=== PATIENT | male | born 1930 | race Caucasian/White ===

== ENCOUNTER 2018-03-20 09:50 | Emergency (ER) | payer MEDICARE, BC ==
[~2018-03-20 09:50] MED LIST: ASPI-630 PO; ATEN25TA PO; FLUT16SP2 NS
--- NOTE | 2018-03-20 10:09 | EKG ---
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
[2018-03-20 10:19] LABS: BASO # 0.1 x10^3/uL (0.0-0.2); BASO % 1 % (0-3); EOS % 0 % (0-3); HEMATOCRIT 36.6 % (39.0-53.0); HEMOGLOBIN 12.5 g/dL (13.0-17.5); LYMPH # 2.1 x10^3/uL (1.0-4.8); LYMPH % 20 % (24-48); MEAN CORPUSCULAR HEMOGLOBIN 32 pg (25-35); MEAN CORPUSCULAR HGB CONC 34 g/dL (31-37); MEAN CORPUSCULAR VOLUME 92 fL (79-100); MONO % 9 % (0-9); NEUT # 7.4 x10^3uL (1.8-7.7); NEUT % 70 % (31-73); PLATELET COUNT 175 x10^3/uL (140-400); RED BLOOD COUNT 3.97 x10^6/uL (4.30-5.70); RED CELL DISTRIBUTION WIDTH 13.3 % (11.5-14.5); WHITE BLOOD COUNT 10.6 x10^3/uL (4.0-11.0)
--- NOTE | 2018-03-20 10:26 | PHYS DOC ---
Past History Past Medical History: Cancer, Hypertension Past Surgical History: Other Smoking: Non-smoker Alcohol Use: None Drug Use: None Adult General Chief Complaint Chief Complaint: CHEST PAIN HPI HPI 87-year-old male presenting the emergency department today with epigastric abdominal pain and pain underneath the ribs with a radiates down to the umbilicus. It is mild to moderate nonradiating intermittent and without alleviating factors. It started approximately 12-24 hours ago. He has a history of partial colectomy, orchectomy and prostatectomy. He denies nausea or vomiting. Review of systems negative for fevers chills cough. He denies headache. All other review of systems is negative unless otherwise noted in history of present illness. ED course: 87-year-old male presenting the emergency department today with epigastric abdominal pain. On arrival the patient's blood pressure is elevated. EKGs obtained and reviewed by myself shows sinus rhythm with a regular rate. ST segments congruent. Not suggestive of ACS. Chest x-ray blood work and CT the abdomen pelvis ordered as well. CBC shows mild anemia. Chemistry panel, troponin and urinalysis are unremarkable. Chest x-ray shows no acute findings. CT the abdomen pelvis shows signs of acute cholecystitis with possible signs of choledocholithiasis. I spoke with Dr. Mcdowell our surgeon at [facility] along with Christa renae [facility] for Dr. Engel. Dr. golden accepts the patient for admission. The patient received IV antibiotics IV fluids and was kept nothing by mouth in the emergency department. Patient transferred by EMS. Patient was stable on transfer. Dr. golden is accepting doctor. Review of Systems Review of Systems SEE ABOVE. Allergies Allergies Allergies Coded Allergies Type Severity Reaction Last Updated Verified nitroglycerin Allergy Unknown 06/28/13 Yes Physical Exam Physical Exam Constitutional: Well developed, well nourished, no acute distress, non-toxic appearance. HENT: Normocephalic, atraumatic, bilateral external ears normal, oropharynx moist, no oral exudates, nose normal. [] Eyes: PERRLA, EOMI, conjunctiva normal, no discharge. [] Neck: Normal range of motion, no tenderness, supple, no stridor. [] Cardiovascular:Heart rate regular rhythm, no murmur Lungs & Thorax: Bilateral breath sounds clear to auscultation [] Abdomen: Soft nontender abdomen without rebound tenderness or guarding present. Negative McBurneys point. Positive Castellano sign. No ecchymosis present. non distended. no pulsatile masses. Skin: Warm, dry, no erythema, no rash. [] Back: No tenderness, no CVA tenderness. [] Extremities: No tenderness, no cyanosis, no clubbing, ROM intact, no edema. Neurologic: Alert and oriented X 3, normal motor function, normal sensory function, no focal deficits noted. [] Psychologic: Affect normal, judgement normal, mood normal. [] EKG EKG [] Radiology/Procedures Radiology/Procedures [] Course & Med Decision Making Course & Med Decision Making Pertinent Labs and Imaging studies reviewed. (See chart for details) [] Dragon Disclaimer Dragon Disclaimer This electronic medical record was generated, in whole or in part, using a voice recognition dictation system. Departure Departure: Impression: Primary Impression: Epigastric abdominal pain Additional Impressions: Choledocholithiasis Acute cholecystitis [facility] Condition: STABLE Referrals: EFREN SAUL MD (PCP) Critical Care Time Critical care time spent was 35 minutes exclusive of procedures. Time was spent evaluating the patient, ordering the administration of medications, reevaluating the patient, discussing with the admitting provider and documenting. Problem Qualifiers PAULA CARRILLO MD Mar 20, 2018 10:26
[2018-03-20] MEDS ORDERED: LABETALOL 100 MG/20 ML VIAL. IV ONE (10:30)
[2018-03-20] MEDS ORDERED: IOHEXOL 300 MG/ML 75 ML VIAL. IV ONE (10:30)
[2018-03-20 10:32] LABS: ALBUMIN 4.3 g/dL (3.4-5.0); CALCIUM 8.9 mg/dL (8.5-10.1); CREATININE 1.1 mg/dL (0.7-1.3); DIRECT BILIRUBIN 0.1 mg/dL (0.0-0.2); GFR 63.3; POTASSIUM 4.4 mmol/L (3.5-5.1); TOTAL BILIRUBIN 0.8 mg/dL (0.2-1.0); TOTAL PROTEIN 7.6 g/dL (6.4-8.2)
--- NOTE | 2018-03-20 10:37 | RAD ---
Chest radiograph 03/20/2018 9:56 AM INDICATION: Chest pain today COMPARISON: July 02, 2013 TECHNIQUE: Portable upright frontal view of the chest is provided. FINDINGS: The cardiomediastinal silhouette is within normal limits. There are no pleural effusions. There is no pulmonary vascular congestion. There is no pneumothorax. The lungs are clear. No significant osseous abnormality is identified. IMPRESSION: No acute cardiopulmonary process. Electronically signed by: Elizabeth Ochoa MD (03/20/2018 10:34 AM) [id number]
--- NOTE | 2018-03-20 11:04 | RAD ---
PQRS Compliance Statement: One or more of the following individualized dose reduction techniques were utilized for this examination: 1. Automated exposure control 2. Adjustment of the mA and/or kV according to patient size 3. Use of iterative reconstruction technique CT abdomen/pelvis with contrast 03/20/2018 10:16 AM INDICATION: Epigastric pain COMPARISON: CT abdomen/pelvis July 02, 2013 TECHNIQUE: Multiple axial CT images of the abdomen and pelvis were obtained after the intravenous administration of 75 mL Omnipaque 300. Coronal and sagittal reformats are provided. FINDINGS: Mild bronchial wall thickening may be seen with orchitis. Heart size is within normal limits. No suspicious hepatic lesion is identified. There is gallbladder wall thickening with pericholecystic fluid and mild intrahepatic and extra hepatic biliary ductal dilatation. Common bile duct measures up to 11 mm. A definite gallstone is not identified within the gallbladder or common bile duct. Spleen is normal in size. Adrenal glands are normal. Pancreas is normal in appearance. The abdominal aorta is normal in course and caliber. There are no pathologically enlarged lymph nodes in the abdomen and pelvis. There is no abdominal free fluid. There is no free intraperitoneal air. Advanced atherosclerotic calcifications of the abdominal aorta are present. The kidneys enhance symmetrically. There is no suspicious renal mass. There is no hydronephrosis. There are no suspected calculi within the kidneys, ureters or urinary bladder. Small and large bowel are normal in caliber. There is no evidence for bowel obstruction. There are no pericolonic inflammatory changes. A normal, nondilated appendix is visualized without adjacent inflammatory changes. Moderate diverticulosis is noted. Colonic anastomosis is identified in the region of the mid transverse colon. Prostate is surgically absent. Surgical clips are identified along the pelvic sidewall and within the deep pelvis. Urinary bladder is within normal limits given degree of distention. Osteopenia of the pelvis is noted. No suspicious osseous lesions are identified. IMPRESSION: 1. Findings are most suggestive of acute cholecystitis. Dilatation of the common bile duct and intrahepatic biliary tree may reflect choledocholithiasis. Further evaluation with MRCP is recommended. Common bile duct measures up to 11 mm. 2. Status post prostatectomy. No pathologically enlarged lymph nodes are identified in the abdomen or pelvis. 3. Mild bronchial wall thickening may reflect bronchitis. Electronically signed by: Elizabeth Ochoa MD (03/20/2018 11:00 AM) [facility]
[2018-03-20 11:27] LABS: BILIRUBIN,URINE NEG (NEG); CLARITY,URINE CLEAR; COLOR,URINE YELLOW; GLUCOSE,URINE NEG (NEG); NITRITE,URINE NEG (NEG); RBC,URINE RARE /HPF (0-2); UROBILINOGEN,URINE 0.2 mg/dL (0.2 mg/dL); WBC,URINE RARE /HPF (0-4)
[2018-03-20 11:28] LABS: BACTERIA,URINE 0 /HPF (0-FEW); HYALINE CASTS, URINE OCC /HPF; SQUAMOUS EPITHELIAL CELL,UR OCC /LPF
[2018-03-20] MEDS ORDERED: PIPERACILLIN/TAZOBACTAM 4.5 GM in IV NORMAL SALINE 50ML 50 ML IV ONE (11:30)
[2018-03-20] MEDS ORDERED: PIP/TAZO PER PHARMACY MC PRN (11:30)
[2018-03-20] MEDS ORDERED: IV NORMAL SALINE 50ML 50 ML ONE (12:06)
[2018-03-20] MEDS ORDERED: PIPERACILLIN/TAZOBACTAM 4.5 GM VIAL IV ONE (12:06)
[2018-03-20 12:24] VITALS: BP 168/81
== END 2018-03-20 12:50 | disposition short-term general hospital (02) ==
LOC: ER 09:50
DX: K80.10 Calculus of gallbladder with chronic cholecystitis without obstruction (principal); I10 Essential (primary) hypertension; Z88.8 Allergy status to other drugs, medicaments and biological substances
CPT/HCPCS: 36415; 71045; 74177; 80048; 80076; 81001; 83690; 84484; 85025; 93005; 96365; 96375; 99285; J2543; J3490; Q9967

== ENCOUNTER 2018-04-30 17:13 | Inpatient (IN) | payer MEDICARE, BC ==
[~2018-04-30] VITALS: Ht 180.3 cm; Wt 79.5 kg
[2018-04-30] MEDS ORDERED: IV DEXTROSE 5% 100 ML IV ONE (17:40)
[2018-04-30 17:45] LABS: BASO % 1 % (0-3); EOS % 1 % (0-3); HEMATOCRIT 34.4 % (39.0-53.0); HEMOGLOBIN 12.1 g/dL (13.0-17.5); LYMPH # 2.5 x10^3/uL (1.0-4.8); LYMPH % 45 % (24-48); MEAN CORPUSCULAR HEMOGLOBIN 32 pg (25-35); MEAN CORPUSCULAR HGB CONC 35 g/dL (31-37); MEAN CORPUSCULAR VOLUME 90 fL (79-100); MONO # 0.7 x10^3/uL (0.0-1.1); MONO % 13 % (0-9); NEUT # 2.2 x10^3uL (1.8-7.7); NEUT % 40 % (31-73); PLATELET COUNT 166 x10^3/uL (140-400); RED BLOOD COUNT 3.81 x10^6/uL (4.30-5.70); RED CELL DISTRIBUTION WIDTH 13.8 % (11.5-14.5); WHITE BLOOD COUNT 5.5 x10^3/uL (4.0-11.0)
--- NOTE | 2018-04-30 17:49 | PHYS DOC ---
Past History Past Medical History: Cancer, CHF, Diabetes, High Cholesterol, Hypertension Past Surgical History: Other Smoking: Non-smoker Alcohol Use: None Drug Use: None Adult General Chief Complaint Chief Complaint: fast heartbeat HPI HPI Patient is a 87-year-old male who presents with complaining of fast heartbeat. Patient states he had laparoscopic cholecystectomy last month and instructed to check his blood pressure and heart rate and today had heartbeat of 150s and blood pressure of 100 without chest pain, dizziness, shortness of breath, fever and chills. Patient did not have history of atrial fibrillation. Review of Systems Review of Systems Constitutional: Denies fever or chills [] Eyes: Denies change in visual acuity, redness, or eye pain [] HENT: Denies nasal congestion or sore throat [] Respiratory: Denies cough or shortness of breath [] Cardiovascular: No additional information not addressed in HPI [] GI: Denies abdominal pain, nausea, vomiting, bloody stools or diarrhea [] : Denies dysuria or hematuria [] Musculoskeletal: Denies back pain or joint pain [] Integument: Denies rash or skin lesions [] Neurologic: Denies headache, focal weakness or sensory changes [] Endocrine: Denies polyuria or polydipsia [] All other systems were reviewed and found to be within normal limits, except as documented in this note. Current Medications Current Medications Current Medications Medications (Trade) Dose Ordered Sig/[facility] Start Time Stop Time Status Last Admin Dose Admin Dextrose 100 ml @ As Directed STK-MED ONCE 04/30/18 17:40 04/30/18 17:41 DC Diltiazem HCl (Cardizem) 125 mg STK-MED ONCE 04/30/18 17:40 04/30/18 17:41 DC Diltiazem HCl 125 mg/Dextrose 125 ml @ 10 mls/hr 1X ONCE 04/30/18 18:00 05/01/18 06:29 Allergies Allergies Allergies Coded Allergies Type Severity Reaction Last Updated Verified nitroglycerin Allergy Unknown 06/28/13 Yes Uncoded Allergies Type Severity Reaction Last Updated Verified statins Adverse Reaction Unknown 03/20/18 Physical Exam Physical Exam Constitutional: Well developed, well nourished, no acute distress, non-toxic appearance. [] HENT: Normocephalic, atraumatic, oropharynx moist, no oral exudates, nose normal. [] Eyes: PERRLA, EOMI, conjunctiva normal, no discharge. [] Neck: Normal range of motion, no tenderness, supple, no stridor. [] Cardiovascular: Irregularly irregular rhythm with tachycardia, no murmur [] Lungs & Thorax: Bilateral breath sounds clear to auscultation [] Abdomen: Bowel sounds normal, soft, no tenderness, no masses, no pulsatile masses. [] Skin: Warm, dry, no erythema, no rash. [] Back: No tenderness, no CVA tenderness. [] Extremities: No tenderness, no cyanosis, no clubbing, ROM intact, no edema. [] Neurologic: Alert and oriented X 3, normal motor function, normal sensory function, no focal deficits noted. [] Psychologic: Affect normal, judgement normal, mood normal. [] Current Patient Data Vital Signs Vital Signs Date Time Temp Pulse Resp B/P (MAP) Pulse Ox O2 Delivery O2 Flow Rate FiO2 04/30/18 17:33 160 107/39 EKG EKG EKG interpreted by me. EKG at 1723 showed atrial flutter patient with RVR at rate of 167, poor R-wave progress in anteroseptal leads, no acute ST and T-wave elevation. Radiology/Procedures Radiology/Procedures [] Course & Med Decision Making Course & Med Decision Making Pertinent Labs and Imaging studies reviewed. (See chart for details) Evolution of patient in ER showed 87-year-old male patient presented to ER with history of patient with RVR without chest pain. Patient treated with Cardizem bolus and then and heart rate dropped to 100s. Dr. Mclaughlin accepted admission at 1745. Dragon Disclaimer Dragon Disclaimer This electronic medical record was generated, in whole or in part, using a voice recognition dictation system. Departure Departure: Impression: Primary Impression: Atrial fibrillation with RVR Additional Impression: Renal insufficiency Disposition: ADMITTED INPATIENT (admitted at 1746) Admitting Physician: Lupe Mclaughlin (accepted admission at 1745) Condition: GUARDED Referrals: EFREN SAUL MD (PCP) Problem Qualifiers JERO PARSONS MD Apr 30, 2018 17:49
[2018-04-30] MEDS ORDERED: dilTIAZem 25 MG/5 ML VIAL IVP ONE (18:00)
[2018-04-30] MEDS ORDERED: dilTIAZem VIAL 125 MG in IV DEXTROSE 5% 100 ML IV ONE (18:00)
[2018-04-30 18:02] LABS: ALBUMIN 3.9 g/dL (3.4-5.0); ALBUMIN/GLOBULIN RATIO 1.2 (1.0-1.7); CALCIUM 8.5 mg/dL (8.5-10.1); CREATININE 1.4 mg/dL (0.7-1.3); GFR 47.9; MAGNESIUM 1.8 mg/dL (1.8-2.4); TOTAL BILIRUBIN 0.6 mg/dL (0.2-1.0); TOTAL PROTEIN 7.1 g/dL (6.4-8.2)
--- NOTE | 2018-04-30 18:28 | RAD ---
AP portable chest 04/30/2018. Reason for exam: Tachycardia and dizziness. Comparison is made with a study of 03/20/2018. The left lateral costophrenic angle remains indistinct. No new infiltrate or effusion is seen. Heart size and pulmonary vascularity appear normal. IMPRESSION: No acute findings. Electronically signed by: Raghav Lemos Jr., MD (04/30/2018 6:25 PM) [facility]
[2018-04-30 19:45] VITALS: BP 146/83
--- NOTE | 2018-04-30 20:46 | EKG ---
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
[2018-04-30 22:00] VITALS: BP 115/68
[2018-04-30 23:00] VITALS: BP 111/65
[2018-05-01] VITALS (20 sets, daily range): BP systolic 107–172; BP diastolic 45–77
[2018-05-01] MEDS ORDERED: METO25TA4 PO (06:26)
[2018-05-01] MEDS ORDERED: ASPI-630 PO (06:26)
--- NOTE | 2018-05-01 07:19 | EKG ---
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
--- NOTE | 2018-05-01 14:56 | PDOC1 ---
History and Physical Date of Admission: Date of Admission: 04/30/2018 Chief Complaint: Chief Complain: Fast heart rate, fatigue Source: Source: Caregiver, Chart review, Patient HPI: HPI: Patient is an 87-year-old male who presented to the [place] [facility] with elevated heart rate and fatigue. He is seen in ICU bed 2 with spouse at bedside who contributes to the history, he is very hard of hearing. Spouse reports that he underwent a laproscopic cholecystectomy March 21 at [facility] (Dr Jeong) after which he had an episode of atrial fibrillation resolved with cardizem. Discharged at the time on metoprolol and ASA he experienced symptomatic bradycardia (HR in 40's with fatigue) his PCP Dr Jones cut metoprolol to 12.5mg daily advising at least daily blood pressure checks. He reportedly did well with the lowered metoprolol and home VS reportedly normal until he complained again of fatigue on Tuesday prompting him to check his BP. Home pressure reportedly normal but HR 150's and after calling his doctor came to [facility]. He denies related CP, dyspnea, fluid retention. In the ED EKG confirmed atrial fibrillation with RVR rate 160's which normalized quickly with cardizem bolus and subsequent drip. D-dimer was 0.73 in the context of recent surgery, BUN 25, Cr 1.4 otherwise labs unremarkable. Earlier today rate declined to 40's and drip was d/c. Cardiology consultation pending at the time I saw him. Past Medical History: Cardiovascular: AFIB (paroxysmal), CHF, HTN, hyperipidemia Heme/Onc: Cancer (prostate (s/p prostatectomy), colon (s/p resection)) Musculoskeletal: Osteoarthritis Endocrine: Diabetes (diet controlled) Past Surgical History: PSH: cataracts, prostatectomy, colon resection, laparoscopic cholecystectomy Social History: Smoke: Quit (25 years ago) Alcohol: rare Drugs: None Allergies: Allergies: Coded Allergies: Updqwna-Hux-Cmv Reductase Inhibitor (Verified Allergy, Intermediate, 05/01) nitroglycerin (Verified Allergy, Intermediate, 05/01/18) Current Medications: Current Medications: Current Medications Medications (Trade) Dose Ordered Sig/Samara Start Time Stop Time Status Last Admin Dose Admin Dextrose 100 ml @ As Directed STK-MED ONCE 04/30/18 17:40 04/30/18 17:41 DC Diltiazem HCl (Cardizem) 125 mg STK-MED ONCE 05/01/18 04:11 05/01/18 04:12 DC 05/01/18 04:20 125 MG Diltiazem HCl 125 mg/Dextrose 125 ml @ 10 mls/hr 1X ONCE 04/30/18 18:00 05/01/18 06:29 DC 04/30/18 17:44 10 MLS/HR ROS: ROS: Constitutional: No fever or chills, +fatigue Eyes: No eye pain or blurred vision Skin: No rash or itching Cardiovascular: No chest pain, syncope, palpitations, dyspnea on exertion, or edema, see HPI Respiratory: No cough or difficulty breathing Gastrointestinal: No nausea, vomiting, or abdominal pain Neurologic: No headaches or focal neurologic deficits Endocrine: No heat or cold intolerance Genitourinary: No incontinence or hematuria Musculoskeletal: No joint pain or swelling Lymphatics: No enlarged lymph nodes Psychiatric: No anxiety or depression PE: PE: Gen.: Alert, pleasant, no apparent distress, very [place] HEENT: Normocephalic atraumatic, no scleral icterus, oral mucosa pink and moist Neck: Supple, no lymphadenopathy, nontender Cardiovascular: Normal S1 and S2 no murmurs Pulmonary: Lungs are clear bilaterally with good air movement no respiratory distress Abdomen: Soft nontender non-distended, bowel sounds present no masses Extremities: No clubbing, cyanosis or edema Neuro: Alert and oriented 3, cranial nerves II through XII grossly intact, no lateralizing neuro deficits Skin: Warm, dry Vitals: Vitals: Vital Signs Date Time Temp Pulse Resp B/P (MAP) Pulse Ox O2 Delivery O2 Flow Rate FiO2 05/01/18 14:00 49 22 149/63 (91) Room Air 05/01/18 12:00 96 05/01/18 11:00 98.1 Labs: Labs: Laboratory Tests Test 04/30/18 17:29 04/30/18 20:55 04/30/18 23:59 White Blood Count 5.5 x10^3/uL (4.0-11.0) Red Blood Count 3.81 x10^6/uL (4.30-5.70) Hemoglobin 12.1 g/dL (13.0-17.5) Hematocrit 34.4 % (39.0-53.0) Mean Corpuscular Volume 90 fL (79-100) Mean Corpuscular Hemoglobin 32 pg (25-35) Mean Corpuscular Hemoglobin Concent 35 g/dL (31-37) Red Cell Distribution Width 13.8 % (11.5-14.5) Platelet Count 166 x10^3/uL (140-400) Neutrophils (%) (Auto) 40 % (31-73) Lymphocytes (%) (Auto) 45 % (24-48) Monocytes (%) (Auto) 13 % (0-9) Eosinophils (%) (Auto) 1 % (0-3) Basophils (%) (Auto) 1 % (0-3) Neutrophils # (Auto) 2.2 x10^3uL (1.8-7.7) Lymphocytes # (Auto) 2.5 x10^3/uL (1.0-4.8) Monocytes # (Auto) 0.7 x10^3/uL (0.0-1.1) Eosinophils # (Auto) 0.0 x10^3/uL (0.0-0.7) Basophils # (Auto) 0.0 x10^3/uL (0.0-0.2) Prothrombin Time 9.8 SEC (9.4-11.4) Prothromb Time International Ratio 1.0 (0.9-1.1) D-Dimer (Coleen) 0.73 mg/L (0.00-0.50) Sodium Level 138 mmol/L (136-145) Potassium Level 4.0 mmol/L (3.5-5.1) Chloride Level 103 mmol/L (98-107) Carbon Dioxide Level 24 mmol/L (21-32) Anion Gap 11 (6-14) Blood Urea Nitrogen 25 mg/dL (8-26) Creatinine 1.4 mg/dL (0.7-1.3) Estimated GFR (Cockcroft-Gault) 47.9 BUN/Creatinine Ratio 18 (6-20) Glucose Level 187 mg/dL (70-99) Calcium Level 8.5 mg/dL (8.5-10.1) Magnesium Level 1.8 mg/dL (1.8-2.4) Total Bilirubin 0.6 mg/dL (0.2-1.0) Aspartate Amino Transf (AST/SGOT) 26 U/L (15-37) Alanine Aminotransferase (ALT/SGPT) 26 U/L (16-63) Alkaline Phosphatase 96 U/L (46-116) Creatine Kinase 96 U/L (39-308) Troponin I Quantitative < 0.017 ng/mL (0-0.055) < 0.017 ng/mL (0-0.055) 0.017 ng/mL (0-0.055) JK-Hvo-Q-Type Natriuretic Peptide 354 pg/mL (0-449) Total Protein 7.1 g/dL (6.4-8.2) Albumin 3.9 g/dL (3.4-5.0) Albumin/Globulin Ratio 1.2 (1.0-1.7) VTE Prophylaxis: VTE Prophylaxis Devices: No VTE Pharmacological Prophylaxi: Yes (eliquis anticoagulation per cardio) Assessment/Plan: A/P: Paroxysmal Atrial Fibrillation with RVR HTN Diet controlled DM2 Hyperlipidemia Cardizem induced bradycardia Continue telemetry monitoring. Flecainide/eliquis per cardio. Check TSH Anticipate d/c home tomorrow JASIEL FIGUEROA DO May 01, 2018 14:56
--- NOTE | 2018-05-01 16:52 | PDOC2 ---
CONSULT Date of Admission DATE: 04/30/18 TIME: 17:50 Reason for Consult: atrial fibrillation with RVR Problem List Problems Medical Problems: (1) Atrial fibrillation with RVR Status: Acute (2) Renal insufficiency Status: Acute History of Present Illness Mr Moy is an 87-year-old male who presented with complaints of fast heartbeat. He does not feel the fast beats. He was found to be in atrial fibrillation with rapid ventricular response. He underwent a laproscopic cholecystectomy in Mar and during that admission he had an episode of atrial fibrillation resolved with 30 min of cardizem as well. That episode occured in the setting of low potassium, leukocytosis and low TSH. Yesterday he was started on IV cardizem in the ED and converted to sinus rhythm early this am. Cardizem was stopped due to sinus bradycardia. He reports that his PCP changed his metoprolol after the March admission due to bradycardia as well. He was apparently instructed to monitor his blood pressure and heart rate at home after his surgery and yesterday noted the elevated heart rate without associated symptoms of chest pain, dizziness, shortness of breath. He denies any congestive complaints, fever or chills. He was placed on aspirin alone after the episode in March due to the brief nature of the event. Past Medical History Echo 03/22/18 The left ventricular systolic function is normal. The ejection fraction is estimated at 65%. There is normal LV segmental wall motion. Transmitral Doppler flow pattern is Grade I-abnormal relaxation pattern.e. Doppler and Color Flow revealed mild tricuspid regurgitation. There is no evidence of significant pericardial effusion. Cardiovascular: HTN, Hyperlipidemia, paroxysmal atrial fibrillation Pulmonary: No pertinent hx CENTRAL NERVOUS SYSTEM: Other (none) GI: Other (colon cancer with resection ) Heme/Onc: No pertinent hx Hepatobiliary: No pertinent hx Psych: No pertinent hx Musculoskeletal: Osteoarthritis Rheumatologic: No pertinent hx Infectious disease: No pertinent hx ENT: No pertinent hx Renal/: No pertinent hx, Prostate Ca. (with previous prostatectomy) Endocrine: Diabetes (diet controlled) Past Surgical History Cataract Removal (bilateral ), cholecystectomy Family History Cancer Social History Smoke: Quit (25 years ago) ALCOHOL: rare Drugs: None Lives: with Family Current Medications Current Medications Diltiazem HCl (Cardizem) 20 mg 1X ONCE IVP Last administered on 04/30/18at 17: 33; Start 04/30/18 at 18:00; Stop 04/30/18 at 18:01; Status DC Diltiazem HCl 125 mg/Dextrose 125 ml @ 10 mls/hr 1X ONCE IV Last administered on 04/30/18at 17:44; Start 04/30/18 at 18:00; Stop 05/01/18 at 06 :29; Status DC Dextrose 100 ml @ As Directed STK-MED ONCE IV ; Start 04/30/18 at 17:40; Stop 04/30/18 at 17:41; Status DC Diltiazem HCl (Cardizem) 125 mg STK-MED ONCE IV ; Start 04/30/18 at 17:40; Stop 04/30/18 at 17:41; Status DC Diltiazem HCl (Cardizem) 125 mg STK-MED ONCE IV Last administered on at 04:20; Start 05/01/18 at 04:11; Stop 05/01/18 at 04:12; Status DC Active Scripts Active Reported Metoprolol Tartrate 25 Mg Tablet 0.5 Tab PO BID Aspirin 81 Mg Tab.chew 81 Mg PO DAILY Flonase (Fluticasone Propionate) 16 Gm [place].susp 16 Gm NS Allergies: Coded Allergies: Ylhbdpw-Fwz-Evu Reductase Inhibitor (Verified Allergy, Intermediate, 05/01) nitroglycerin (Verified Allergy, Intermediate, 05/01/18) Review of System as per HPI General: Alert, Oriented X3, Cooperative, No acute distress HEENT: Atraumatic, EOMI, Mucous membr. moist/pink, Other (hard of hearing) Lungs: Clear to auscultation Heart: Normal S1, Normal S2, Other (no gallops, clicks or rubs) Abdomen: Normal bowel sounds, Soft, No tenderness Extremities: No cyanosis, Normal pulses Neuro: Normal speech Psych/Mental Status: Mental status NL, Mood NL VITALS Vital Signs Date Time Temp Pulse Resp B/P (MAP) Pulse Ox O2 Delivery O2 Flow Rate FiO2 05/01/18 16:02 98.0 48 22 141/62 (88) Room Air 05/01/18 15:00 95 Labs Laboratory Tests Test 04/30/18 17:29 04/30/18 20:55 04/30/18 23:59 White Blood Count 5.5 x10^3/uL (4.0-11.0) Red Blood Count 3.81 x10^6/uL (4.30-5.70) Hemoglobin 12.1 g/dL (13.0-17.5) Hematocrit 34.4 % (39.0-53.0) Mean Corpuscular Volume 90 fL (79-100) Mean Corpuscular Hemoglobin 32 pg (25-35) Mean Corpuscular Hemoglobin Concent 35 g/dL (31-37) Red Cell Distribution Width 13.8 % (11.5-14.5) Platelet Count 166 x10^3/uL (140-400) Neutrophils (%) (Auto) 40 % (31-73) Lymphocytes (%) (Auto) 45 % (24-48) Monocytes (%) (Auto) 13 % (0-9) Eosinophils (%) (Auto) 1 % (0-3) Basophils (%) (Auto) 1 % (0-3) Neutrophils # (Auto) 2.2 x10^3uL (1.8-7.7) Lymphocytes # (Auto) 2.5 x10^3/uL (1.0-4.8) Monocytes # (Auto) 0.7 x10^3/uL (0.0-1.1) Eosinophils # (Auto) 0.0 x10^3/uL (0.0-0.7) Basophils # (Auto) 0.0 x10^3/uL (0.0-0.2) Prothrombin Time 9.8 SEC (9.4-11.4) Prothromb Time International Ratio 1.0 (0.9-1.1) D-Dimer (Coleen) 0.73 mg/L (0.00-0.50) Sodium Level 138 mmol/L (136-145) Potassium Level 4.0 mmol/L (3.5-5.1) Chloride Level 103 mmol/L (98-107) Carbon Dioxide Level 24 mmol/L (21-32) Anion Gap 11 (6-14) Blood Urea Nitrogen 25 mg/dL (8-26) Creatinine 1.4 mg/dL (0.7-1.3) Estimated GFR (Cockcroft-Gault) 47.9 BUN/Creatinine Ratio 18 (6-20) Glucose Level 187 mg/dL (70-99) Calcium Level 8.5 mg/dL (8.5-10.1) Magnesium Level 1.8 mg/dL (1.8-2.4) Total Bilirubin 0.6 mg/dL (0.2-1.0) Aspartate Amino Transf (AST/SGOT) 26 U/L (15-37) Alanine Aminotransferase (ALT/SGPT) 26 U/L (16-63) Alkaline Phosphatase 96 U/L (46-116) Creatine Kinase 96 U/L (39-308) Troponin I Quantitative < 0.017 ng/mL (0-0.055) < 0.017 ng/mL (0-0.055) 0.017 ng/mL (0-0.055) VC-Cuv-F-Type Natriuretic Peptide 354 pg/mL (0-449) Total Protein 7.1 g/dL (6.4-8.2) Albumin 3.9 g/dL (3.4-5.0) Albumin/Globulin Ratio 1.2 (1.0-1.7) Assessment/Plan 1. atrial fib with RVR, recurrent, resolved with cardizem IV drip for short period. Currently sinus bradycardia. [id number] = 4, 5.1% annual risk of stroke. Will start low dose flecainide. Resume metoprolol but at reduced dose of 12.5 XL daily in the am. Eliquis for stroke prevention and outpatient MCT for 30 days. 2. HTN - diet controlled 3. HLD - statin intolerant due to myalgias 4. fatigue - he reported fatigue with metoprolol 25 bid, this was not significantly improved with decrease to 12.5 BID. Will limit to 12.5 daily long acting and monitor response. suspect some tachy jacques. outpatient monitoring to further evaluate. JAMSHID JEROME [employer] MEMBER May 01, 2018 16:52
[2018-05-01] MEDS: FLECAINIDE 50 MG TABLET. PO SCH ×2 (20:49→21:44)
[2018-05-01] MEDS: APIXABAN 5 MG TABLET. PO SCH (20:52)
[2018-05-02 05:00] VITALS: BP 139/72
[2018-05-02] MEDS: FLECAINIDE 50 MG TABLET. PO SCH (07:59)
[2018-05-02] MEDS: APIXABAN 5 MG TABLET. PO SCH (08:00)
[2018-05-02] MEDS ORDERED: METOPROLOL SUCC 24HR ER 25 MG TAB.ER.24H. PO SCH (09:00)
--- NOTE | 2018-05-02 09:23 | PDOC ---
PROGRESS NOTES Diagnosis Problem Problems Medical Problems: (1) Atrial fibrillation with RVR Status: Acute (2) Renal insufficiency Status: Acute Assessment Problems Medical Problems: (1) Atrial fibrillation with RVR Status: Acute (2) Renal insufficiency Status: Acute 1. paroxysmal atrial fibrillation with RVR - remains sinus rhythm. Sinus jacques yesterday suggestive of tachy-jacques. Rate currently 70s. Continue metoprolol, flecainide and Eliquis for stroke prophylaxis. outpatient MCT for burden, to be applied in LV office tomorrow at 1pm. EKG today sinus bradycardia with PACs QTC 368. Tele sinus bradycardia with frequent PACs and short salvos of PAT. FU office on May [address] Varela per patient request as this is his 's physician as well. 2. hypertension - mildly elevated yesterday evening. started metoprolol. continue to monitor. consider ACEI if remains elevated. 3. HLD - statin intolerant. check lipids, consider PCSK9 inhibitor if indicated. Subjective no chest pain, dyspnea or lightheadedness. wants to go home. Objective Vital Signs Date Time Temp Pulse Resp B/P (MAP) Pulse Ox O2 Delivery O2 Flow Rate FiO2 05/02/18 08:00 100 05/02/18 08:00 Room Air 05/02/18 05:00 98.3 20 139/72 (94) 95 Intake and Output 05/02/18 07:00 Intake Total 850 ml Output Total 750 ml Balance 100 ml Intake Oral 850 ml Output Urine Total 750 ml # Voids 1 # Bowel Movements 1 Abdomen: Normal bowel sounds, Soft, No tenderness Heart: Normal S1, Normal S2, Other (no gallops, significant murmurs, no clicks or rubs) Extremities: No cyanosis, No edema, Normal pulses General: Alert, Oriented X3, Cooperative, No acute distress Lungs: Clear to auscultation Neuro: Normal speech Psych/Mental Status: Mental status NL, Mood NL Review of Relevant I have reviewed the following items [place] (where applicable) has been applied. Labs Laboratory Tests Test 04/30/18 17:29 04/30/18 19:50 04/30/18 20:55 04/30/18 23:59 White Blood Count 5.5 x10^3/uL (4.0-11.0) Red Blood Count 3.81 x10^6/uL (4.30-5.70) Hemoglobin 12.1 g/dL (13.0-17.5) Hematocrit 34.4 % (39.0-53.0) Mean Corpuscular Volume 90 fL (79-100) Mean Corpuscular Hemoglobin 32 pg (25-35) Mean Corpuscular Hemoglobin Concent 35 g/dL (31-37) Red Cell Distribution Width 13.8 % (11.5-14.5) Platelet Count 166 x10^3/uL (140-400) Neutrophils (%) (Auto) 40 % (31-73) Lymphocytes (%) (Auto) 45 % (24-48) Monocytes (%) (Auto) 13 % (0-9) Eosinophils (%) (Auto) 1 % (0-3) Basophils (%) (Auto) 1 % (0-3) Neutrophils # (Auto) 2.2 x10^3uL (1.8-7.7) Lymphocytes # (Auto) 2.5 x10^3/uL (1.0-4.8) Monocytes # (Auto) 0.7 x10^3/uL (0.0-1.1) Eosinophils # (Auto) 0.0 x10^3/uL (0.0-0.7) Basophils # (Auto) 0.0 x10^3/uL (0.0-0.2) Prothrombin Time 9.8 SEC (9.4-11.4) Prothromb Time International Ratio 1.0 (0.9-1.1) D-Dimer (Coleen) 0.73 mg/L (0.00-0.50) Sodium Level 138 mmol/L (136-145) Potassium Level 4.0 mmol/L (3.5-5.1) Chloride Level 103 mmol/L (98-107) Carbon Dioxide Level 24 mmol/L (21-32) Anion Gap 11 (6-14) Blood Urea Nitrogen 25 mg/dL (8-26) Creatinine 1.4 mg/dL (0.7-1.3) Estimated GFR (Cockcroft-Gault) 47.9 BUN/Creatinine Ratio 18 (6-20) Glucose Level 187 mg/dL (70-99) Calcium Level 8.5 mg/dL (8.5-10.1) Magnesium Level 1.8 mg/dL (1.8-2.4) Total Bilirubin 0.6 mg/dL (0.2-1.0) Aspartate Amino Transf (AST/SGOT) 26 U/L (15-37) Alanine Aminotransferase (ALT/SGPT) 26 U/L (16-63) Alkaline Phosphatase 96 U/L (46-116) Creatine Kinase 96 U/L (39-308) Troponin I Quantitative < 0.017 ng/mL (0-0.055) < 0.017 ng/mL (0-0.055) 0.017 ng/mL (0-0.055) RU-Mhw-E-Type Natriuretic Peptide 354 pg/mL (0-449) Total Protein 7.1 g/dL (6.4-8.2) Albumin 3.9 g/dL (3.4-5.0) Albumin/Globulin Ratio 1.2 (1.0-1.7) Nasal Screen MRSA (PCR) Negative (Negative) Medications Current Medications Diltiazem HCl (Cardizem) 20 mg 1X ONCE IVP Last administered on 04/30/18at 17: 33; Start 04/30/18 at 18:00; Stop 04/30/18 at 18:01; Status DC Diltiazem HCl 125 mg/Dextrose 125 ml @ 10 mls/hr 1X ONCE IV Last administered on 04/30/18at 17:44; Start 04/30/18 at 18:00; Stop 05/01/18 at 06 :29; Status DC Dextrose 100 ml @ As Directed STK-MED ONCE IV ; Start 04/30/18 at 17:40; Stop 04/30/18 at 17:41; Status DC Diltiazem HCl (Cardizem) 125 mg STK-MED ONCE IV ; Start 04/30/18 at 17:40; Stop 04/30/18 at 17:41; Status DC Diltiazem HCl (Cardizem) 125 mg STK-MED ONCE IV Last administered on at 04:20; Start 05/01/18 at 04:11; Stop 05/01/18 at 04:12; Status DC Flecainide Acetate (Tambocor) 50 mg Q12HR PO Last administered on 05/02/18at 07 :59; Start 05/01/18 at 21:00 Metoprolol Succinate (Toprol Xl) 12.5 mg DAILY PO Last administered on at 08:00; Start 05/02/18 at 09:00 Apixaban (Eliquis) 5 mg BID PO Last administered on 05/02/18at 08:00; Start at 21:00 Active Scripts Active Reported Metoprolol Tartrate 25 Mg Tablet 0.5 Tab PO BID Aspirin 81 Mg Tab.chew 81 Mg PO DAILY Flonase (Fluticasone Propionate) 16 Gm [place].susp 16 Gm NS Vitals/I & O Vital Sign - Last 24 Hours 05/01/18 05/01/18 05/01/18 05/01/18 10:00 11:00 12:00 12:00 Temp 98.1 Pulse 52 44 47 Resp 20 25 23 B/P (MAP) 117/45 (69) 126/50 (75) 112/45 (67) Pulse Ox 96 O2 Delivery Room Air Room Air Room Air Room Air 05/01/18 05/01/18 05/01/18 05/01/18 13:00 14:00 15:00 16:02 Pulse 50 49 49 Resp 27 22 29 B/P (MAP) 125/45 (71) 149/63 (91) 145/72 (96) Pulse Ox 95 O2 Delivery Room Air Room Air Room Air Room Air 05/01/18 05/01/18 05/01/18 05/01/18 16:02 19:12 19:58 20:00 Temp 98.0 98.3 Pulse 48 52 52 Resp 22 20 22 B/P (MAP) 141/62 (88) 172/58 (96) 153/56 (88) Pulse Ox 93 96 O2 Delivery Room Air Room Air Room Air Room Air 05/01/18 05/01/18 05/02/18 05/02/18 21:44 22:05 05:00 07:59 Temp 98.1 98.3 Pulse 88 86 86 100 Resp 20 20 B/P (MAP) 153/56 144/69 (94) 139/72 (94) Pulse Ox 95 95 O2 Delivery Room Air Room Air 05/02/18 05/02/18 08:00 08:00 Pulse 100 O2 Delivery Room Air Intake and Output 05/01/18 05/01/18 05/02/18 15:00 23:00 07:00 Intake Total 500 ml 250 ml 100 ml Output Total 450 ml 300 ml Balance 500 ml -200 ml -200 ml JAMSHID JEROME MEDICAL [employer] DESK COORDINATOR May 02, 2018 09:23
[2018-05-02 09:57] LABS: BASO % 0 % (0-3); EOS % 1 % (0-3); HEMATOCRIT 36.2 % (39.0-53.0); HEMOGLOBIN 12.2 g/dL (13.0-17.5); LYMPH # 1.6 x10^3/uL (1.0-4.8); LYMPH % 27 % (24-48); MEAN CORPUSCULAR HEMOGLOBIN 31 pg (25-35); MEAN CORPUSCULAR HGB CONC 34 g/dL (31-37); MEAN CORPUSCULAR VOLUME 92 fL (79-100); MONO # 0.7 x10^3/uL (0.0-1.1); MONO % 12 % (0-9); NEUT # 3.8 x10^3uL (1.8-7.7); NEUT % 61 % (31-73); PLATELET COUNT 178 x10^3/uL (140-400); RED BLOOD COUNT 3.92 x10^6/uL (4.30-5.70); RED CELL DISTRIBUTION WIDTH 14.2 % (11.5-14.5); WHITE BLOOD COUNT 6.2 x10^3/uL (4.0-11.0)
[2018-05-02 10:11] LABS: ALBUMIN 3.9 g/dL (3.4-5.0); ALBUMIN/GLOBULIN RATIO 1.1 (1.0-1.7); CALCIUM 8.9 mg/dL (8.5-10.1); CREATININE 1.5 mg/dL (0.7-1.3); GFR 44.3; MAGNESIUM 1.7 mg/dL (1.8-2.4); POTASSIUM 3.9 mmol/L (3.5-5.1); TOTAL BILIRUBIN 1.2 mg/dL (0.2-1.0); TOTAL PROTEIN 7.4 g/dL (6.4-8.2)
[2018-05-02 13:02] VITALS: BP 155/72
[2018-05-02] MEDS ORDERED: FLEC50TA PO (14:02)
[2018-05-02] MEDS ORDERED: METO-239 PO (14:02)
[2018-05-02] MEDS ORDERED: APIX5TAB3 PO (14:02)
--- NOTE | 2018-05-02 14:19 | PDOC3 ---
Discharge Summary Visit Information: Date of Admission: Apr 30, 2018 Date of Discharge: May 02, 2018 Admitting Diagnosis: atrial fibrillation with rapid ventricular response, maykel Final Diagnosis Problems Medical Problems: (1) Atrial fibrillation with RVR Status: Acute (2) Renal insufficiency Status: Acute Brief Hospital Course: Allergies: Allergies Coded Allergies Type Severity Reaction Last Updated Verified Ytrmsyx-Qfq-Fhp Reductase Inhibitor Allergy Intermediate 05/01/18 Yes nitroglycerin Allergy Intermediate 05/01/18 Yes Vital Signs: Vital Signs Date Time Temp Pulse Resp B/P (MAP) Pulse Ox O2 Delivery O2 Flow Rate FiO2 05/02/18 13:02 98.8 88 20 155/72 (99) 96 Room Air Lab Results: Laboratory Tests Test 04/30/18 17:29 04/30/18 19:50 04/30/18 20:55 04/30/18 23:59 White Blood Count 5.5 x10^3/uL (4.0-11.0) Red Blood Count 3.81 x10^6/uL (4.30-5.70) Hemoglobin 12.1 g/dL (13.0-17.5) Hematocrit 34.4 % (39.0-53.0) Mean Corpuscular Volume 90 fL (79-100) Mean Corpuscular Hemoglobin 32 pg (25-35) Mean Corpuscular Hemoglobin Concent 35 g/dL (31-37) Red Cell Distribution Width 13.8 % (11.5-14.5) Platelet Count 166 x10^3/uL (140-400) Neutrophils (%) (Auto) 40 % (31-73) Lymphocytes (%) (Auto) 45 % (24-48) Monocytes (%) (Auto) 13 % (0-9) Eosinophils (%) (Auto) 1 % (0-3) Basophils (%) (Auto) 1 % (0-3) Neutrophils # (Auto) 2.2 x10^3uL (1.8-7.7) Lymphocytes # (Auto) 2.5 x10^3/uL (1.0-4.8) Monocytes # (Auto) 0.7 x10^3/uL (0.0-1.1) Eosinophils # (Auto) 0.0 x10^3/uL (0.0-0.7) Basophils # (Auto) 0.0 x10^3/uL (0.0-0.2) Prothrombin Time 9.8 SEC (9.4-11.4) Prothromb Time International Ratio 1.0 (0.9-1.1) D-Dimer (Coleen) 0.73 mg/L (0.00-0.50) Sodium Level 138 mmol/L (136-145) Potassium Level 4.0 mmol/L (3.5-5.1) Chloride Level 103 mmol/L (98-107) Carbon Dioxide Level 24 mmol/L (21-32) Anion Gap 11 (6-14) Blood Urea Nitrogen 25 mg/dL (8-26) Creatinine 1.4 mg/dL (0.7-1.3) Estimated GFR (Cockcroft-Gault) 47.9 BUN/Creatinine Ratio 18 (6-20) Glucose Level 187 mg/dL (70-99) Calcium Level 8.5 mg/dL (8.5-10.1) Magnesium Level 1.8 mg/dL (1.8-2.4) Total Bilirubin 0.6 mg/dL (0.2-1.0) Aspartate Amino Transf (AST/SGOT) 26 U/L (15-37) Alanine Aminotransferase (ALT/SGPT) 26 U/L (16-63) Alkaline Phosphatase 96 U/L (46-116) Creatine Kinase 96 U/L (39-308) Troponin I Quantitative < 0.017 ng/mL (0-0.055) < 0.017 ng/mL (0-0.055) 0.017 ng/mL (0-0.055) XU-Wlx-O-Type Natriuretic Peptide 354 pg/mL (0-449) Total Protein 7.1 g/dL (6.4-8.2) Albumin 3.9 g/dL (3.4-5.0) Albumin/Globulin Ratio 1.2 (1.0-1.7) Nasal Screen MRSA (PCR) Negative (Negative) Test 05/01/18 17:02 05/02/18 09:50 Thyroid Stimulating Hormone (TSH) 2.138 uIU/mL (0.358-3.740) White Blood Count 6.2 x10^3/uL (4.0-11.0) Red Blood Count 3.92 x10^6/uL (4.30-5.70) Hemoglobin 12.2 g/dL (13.0-17.5) Hematocrit 36.2 % (39.0-53.0) Mean Corpuscular Volume 92 fL (79-100) Mean Corpuscular Hemoglobin 31 pg (25-35) Mean Corpuscular Hemoglobin Concent 34 g/dL (31-37) Red Cell Distribution Width 14.2 % (11.5-14.5) Platelet Count 178 x10^3/uL (140-400) Neutrophils (%) (Auto) 61 % (31-73) Lymphocytes (%) (Auto) 27 % (24-48) Monocytes (%) (Auto) 12 % (0-9) Eosinophils (%) (Auto) 1 % (0-3) Basophils (%) (Auto) 0 % (0-3) Neutrophils # (Auto) 3.8 x10^3uL (1.8-7.7) Lymphocytes # (Auto) 1.6 x10^3/uL (1.0-4.8) Monocytes # (Auto) 0.7 x10^3/uL (0.0-1.1) Eosinophils # (Auto) 0.0 x10^3/uL (0.0-0.7) Basophils # (Auto) 0.0 x10^3/uL (0.0-0.2) Sodium Level 137 mmol/L (136-145) Potassium Level 3.9 mmol/L (3.5-5.1) Chloride Level 102 mmol/L (98-107) Carbon Dioxide Level 26 mmol/L (21-32) Anion Gap 9 (6-14) Blood Urea Nitrogen 23 mg/dL (8-26) Creatinine 1.5 mg/dL (0.7-1.3) Estimated GFR (Cockcroft-Gault) 44.3 BUN/Creatinine Ratio 15 (6-20) Glucose Level 281 mg/dL (70-99) Calcium Level 8.9 mg/dL (8.5-10.1) Magnesium Level 1.7 mg/dL (1.8-2.4) Total Bilirubin 1.2 mg/dL (0.2-1.0) Aspartate Amino Transf (AST/SGOT) 17 U/L (15-37) Alanine Aminotransferase (ALT/SGPT) 23 U/L (16-63) Alkaline Phosphatase 93 U/L (46-116) Total Protein 7.4 g/dL (6.4-8.2) Albumin 3.9 g/dL (3.4-5.0) Albumin/Globulin Ratio 1.1 (1.0-1.7) PE: Gen.: Alert, pleasant, very hard of hearing and pacing in his room inpatient to go home but otherwise in no apparent distress HEENT: Normocephalic atraumatic, no scleral icterus, oral mucosa pink and moist Neck: Supple, no lymphadenopathy, nontender Cardiovascular: Normal S1 and S2 no murmurs Pulmonary: Lungs are clear bilaterally with good air movement no respiratory distress Abdomen: Soft nontender non-distended, bowel sounds present no masses Extremities: No clubbing, cyanosis or edema Neuro: Alert and oriented 3, cranial nerves II through XII grossly intact, no lateralizing neuro deficits Skin: Warm, dry Brief Hospital Course: Patient is an 87-year-old male who presented to the [facility] with elevated heart rate and fatigue. He underwent a laproscopic cholecystectomy March 21 at [facility] (Dr Jeong) after which he had an episode of atrial fibrillation resolved with cardizem. Discharged at the time on metoprolol and ASA he experienced symptomatic bradycardia (HR in 40's with fatigue) his PCP Dr Jones cut metoprolol to 12.5mg daily advising at least daily blood pressure checks. He reportedly did well with the lowered metoprolol and home VS reportedly normal until he complained again of fatigue on Tuesday prompting him to check his BP. Home pressure reportedly normal but HR 150's and after calling his doctor came to [facility]. He denied related CP, dyspnea, fluid retention. In the ED EKG confirmed atrial fibrillation with RVR rate 160's which normalized quickly with cardizem bolus and subsequent drip. D-dimer was 0.73 in the context of recent surgery, BUN 25, Cr 1.4 otherwise labs unremarkable. He has since been started on flecainide and Eliquis as well as 12.5 mg of metoprolol SR daily. He is scheduled to follow-up with cardiology at the [facility] tomorrow at 1 PM for an event monitor and a follow-up office visit with Dr. Varela on May 22. I discussed discharge instructions in detail with the patient and his spouse they expressed agreement and understanding of the follow-up plan. Discharge Information: Condition at Discharge: Improved Follow Up: Weeks (as stated above) Disposition/Orders: D/C to Home Home Meds: Active Scripts Metoprolol Succinate (METOPROLOL SUCCINATE ( XL )) 25 Mg Tab.er.24h, 12.5 MG PO DAILY for 30 Days, #15 TAB.SR Prov:JASIEL FIGUEROA DO 05/02/18 Flecainide Acetate (FLECAINIDE ACETATE) 50 Mg Tablet, 50 MG PO Q12HR for 30 Days , #60 TAB Prov:JASIEL FIGUEROA DO 05/02/18 Apixaban (ELIQUIS) 5 Mg Tablet, 5 MG PO BID for 30 Days, #60 TAB Prov:JASIEL FIGUEROA DO 05/02/18 Reported Medications Aspirin (ASPIRIN) 81 Mg Tab.chew, 81 MG PO DAILY, TAB 05/01/18 Fluticasone Propionate (FLONASE) 16 Gm [place].susp, 16 GM NS 06/28/13 Discontinued Reported Medications Metoprolol Tartrate (METOPROLOL TARTRATE) 25 Mg Tablet, 0.5 TAB PO BID, #180 TAB 1 Refill 05/01/18 JASIEL FIGUEROA DO May 02, 2018 14:18
--- NOTE | 2018-05-04 13:48 | EKG ---
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
== END 2018-05-02 14:40 | disposition home or self-care (01) | DRG 310 ==
LOC: ER 17:13 → ICU 18:24 → 1 SOUTH 05-01 17:38
PROVIDERS: ADMIT Internal Medicine; ATTEND Internal Medicine
DX: I48.0 Paroxysmal atrial fibrillation (principal); I11.0 Hypertensive heart disease with heart failure; M19.90 Unspecified osteoarthritis, unspecified site; R00.1 Bradycardia, unspecified; T46.1X5A Adverse effect of calcium-channel blockers, initial encounter; D72.829 Elevated white blood cell count, unspecified; E11.9 Type 2 diabetes mellitus without complications; H91.90 Unspecified hearing loss, unspecified ear; E78.00 Pure hypercholesterolemia, unspecified; E78.5 Hyperlipidemia, unspecified; I07.1 Rheumatic tricuspid insufficiency; I50.9 Heart failure, unspecified; N28.9 Disorder of kidney and ureter, unspecified; Z85.038 Personal history of other malignant neoplasm of large intestine; Z79.899 Other long term (current) drug therapy; Z90.49 Acquired absence of other specified parts of digestive tract; Z90.79 Acquired absence of other genital organ(s); Y92.89 Other specified places as the place of occurrence of the external cause; Z88.8 Allergy status to other drugs, medicaments and biological substances
CPT/HCPCS: 36415; 71045; 80053; 82550; 83735; 83880; 84443; 84484; 85025; 85379; 85610; 87641; 93005; J3490; 99285-25

== ENCOUNTER → 2018-06-15 | Outpatient (CLI) | payer MEDICARE, BC ==
[~2018-06-15] MED LIST changes: +APIX5TAB3 PO; +FLEC50TA PO; +METO-239 PO; +METO25TA4 PO; +REGADENOSON 0.4 MG/5 ML DISP.SYRIN. IV ONE
--- NOTE | 2018-06-15 11:56 | RAD ---
MR#: [id number] Date of Study: 06/15/2018 Ordering Physician: SINA JUÁREZ, Referring Physician: ALNIA MITCHELL Tech: Jerrica Segura RT (R) (N) APPROVED REPORT Test Type: Pharmacological Stress Nurse/Tech: RT Rajeev (R) (N) Test Indications: Weakness, chest discomfort Cardiac History: none Medications: see EHR Medical History: see EHR Resting ECG: SR PACs No acute changes Resting Heart Rate: 72 bpm Resting Blood Pressure: 182/73mmHg Pretest Chest Pain: None Nurse/Tech Notes Consent: The procedure was explained to the patient in lay terms. Informed consent was witnessed. Simeon eout was entered into [employer]. History and Stress Test performed by RT Paul Boo) (N) Pharm. Details Pharmacologic stress testing was performed using 0.4mg per 5ml of regadenoson given intravenously ove r 7-10 seconds. POST EXERCISE Max HR: 97 bpm Max Blood Pressure: 125/53mmHg Blood Pressure response to exercise: Normal blood pressure response during stress. Heart Rate response to exercise: nmormal response Chest Pain: No. INTERPRETATION Stress EKG Conclusion: No chest pain - no acute changes Imaging Protocol IMAGE PROTOCOL: Rest Tc-99m/stress Tc-99m 1 day Rest: Stress: Viability: Radiopharm.Tc99m GfaiddiblCa79b Sestamibi [id number] 34.4mCi Duration 17min. 13min. Img Date 06/15/2018 06/15/2018 Inj-Img [id number]. 60min. Rest Admin Site:IV - Right AntecubitalAdministrator: LEIGH Segura Stress Admin Site: IV - Right AntecubitalAdministrator: RT Paul Boo)(N) STRESS DATA End Diast. Vol.76.0mlAv. Heart Rate76.0bpm LVEDV index BSA1.0mlCardiac Output0.1L/min End Syst. Vol.14.0mlCO Index BSA4.7L/min LVESV index BSA0.0mlMyocardial Zeaq931.0g Eject. Ntradgav82.0% Stress Rates Pk. Fill Rate3.41EDV/secLVtime Pk. Fill 228.52msec Pk. Empty Rate5.26ESV/secLVtime Pk. Iruaa234.90msec / Pk. Fill0.97EDV/sec Stress Scores Regional WT0.00Summed WT0.00 Regional WM0.00Summed WM0.00 The rest and stress images show normal perfusion, normal contraction and thickening. LV Perf. Quant 17 Seg. SSS3.00 17 Seg. SRS4.00 17 Seg. SDS1.00 Stress Defect Extent (% LAD)0.00Rest Defect Extent (% LAD)0.00Rev. Defect Extent (% LAD)0.00 Stress Defect Extent (% LCX) 31.30Rest Defect Extent (% LCX)35.00Rev. Defect Extent (% LCX)3.80 Stress Defect Extent (% RCA)0.00Rest Defect Extent (% RCA)0.00Rev. Defect Extent (% RCA)0.00 Stress Defect Extent (% BONNIE)5.40Rest Defect Extent (% BONNIE)6.10Rev. Defect Extent (% BONNIE)0.70 Other Information Quality:Average Risk Assessment: Low Risk Conclusion 1. No evidence of EKG changes with stress testing. 2. Normal perfusion at stress/rest. 3. Low risk study. 4. EF > 60%. Signed by : Ga Vera, Electronically Approved : 06/15/2018 11:55:15
== END | disposition home or self-care (01) ==
LOC: NM 07:11
PROVIDERS: ATTEND Internal Medicine Cardiovascular Disease
DX: I48.0 Paroxysmal atrial fibrillation (principal); R07.89 Other chest pain; R53.1 Weakness; I10 Essential (primary) hypertension; Z79.01 Long term (current) use of anticoagulants; Z87.891 Personal history of nicotine dependence
CPT/HCPCS: 78452; 93017; 96374; 96375; 96376; A9500; J2785

== ENCOUNTER 2018-12-20 11:13 | Emergency (ER) | payer MEDICARE, BC ==
[~2018-12-20] VITALS: Ht 180.3 cm; Wt 83.2 kg
[~2018-12-20 11:13] MED LIST changes: -ATEN25TA PO; +ATEN25TA42 PO; -REGADENOSON 0.4 MG/5 ML DISP.SYRIN. IV ONE
--- NOTE | 2018-12-20 12:01 | PHYS DOC ---
Past History Past Medical History: A-Fib Past Surgical History: Cholecystectomy Smoking: Non-smoker Alcohol Use: None Drug Use: None Adult General Chief Complaint Chief Complaint: NEURO SYMPTOMS/DEFICITS HPI HPI Patient is a 88-year-old male presents with speech difficulties. They have been occurring intermittently for the past several days. Patient has difficulty getting the words out. This lasted about an hour. Most recent episode was this morning. Patient denies any headache or change in vision. Patient is able to use all 4 extremities without any new weakness. Symptoms have resolved at this time. Patient also has been having some generalized weakness after taking his new medication, flecanide and Rythmol. Denies any chest pain or palpitations. Denies any focality to the weakness. This resolves typically within 2 hours.[] Review of Systems Review of Systems Constitutional: Denies fever or chills [] Eyes: Denies change in visual acuity, redness, or eye pain [] HENT: Denies nasal congestion or sore throat [] Respiratory: Denies cough or shortness of breath [] Cardiovascular: No chest pain or palpitations[] GI: Denies abdominal pain, nausea, vomiting, bloody stools or diarrhea [] : Denies dysuria or hematuria [] Musculoskeletal: Denies back pain or joint pain [] Integument: Denies rash or skin lesions [] Neurologic: Denies headache, focal weakness or sensory changes on see history of present illness [] Endocrine: Denies polyuria or polydipsia [] All other systems were reviewed and found to be within normal limits, except as documented in this note. Allergies Allergies Allergies Coded Allergies Type Severity Reaction Last Updated Verified Kxmhfsf-Yab-Mdl Reductase Inhibitor Allergy Intermediate 05/01/18 Yes nitroglycerin Allergy Intermediate 05/01/18 Yes Physical Exam Physical Exam Constitutional: Well developed, well nourished, no acute distress, non-toxic appearance. [] HENT: Normocephalic, atraumatic, bilateral external ears normal, oropharynx moist, no oral exudates, nose normal. [] Eyes: PERRLA, EOMI, conjunctiva normal, no discharge. [] Neck: Normal range of motion, no tenderness, supple, no stridor. [] Cardiovascular:Heart rate regular rhythm, no murmur [] Lungs & Thorax: Bilateral breath sounds clear to auscultation [] Abdomen: Bowel sounds normal, soft, no tenderness, no masses, no pulsatile mas ses. [] Skin: Warm, dry, no erythema, no rash. [] Back: No tenderness, no CVA tenderness. [] Extremities: No tenderness, no cyanosis, no clubbing, ROM intact, no edema. [] Neurologic: Alert and oriented X 3, normal motor function, normal sensory function, no focal deficits noted. [] Psychologic: Affect normal, judgement normal, mood normal. [] Current Patient Data Vital Signs Vital Signs Date Time Temp Pulse Resp B/P (MAP) Pulse Ox O2 Delivery O2 Flow Rate FiO2 12/20/18 11:34 97.8 88 20 96 Room Air EKG EKG EKG shows a sinus rhythm at 78 bpm, normal axis, normal QTC of 423 ms, no ST elevations. Interpreted by me at 1132.[] Radiology/Procedures Radiology/Procedures CHEST AP ONLY History: Speech difficulty Comparison: 04/30/2018 Findings: Single view of the chest is submitted. Mild left base opacity may be due to mild atelectasis. There is no significant pleural fluid or pneumothorax. The pericardial cardiac silhouette is within normal limits in size. There is atherosclerotic calcification near aortic arch. Impression: 1. There is probable mild left base atelectasis. CT HEAD WO CONTRAST Indication: Speech difficulties for 2 days. Exposure: One or more of the following individualized dose reduction techniques were utilized for this examination: 1. Automated exposure control 2. Adjustment of the mA and/or kV according to patient size 3. Use of iterative reconstruction technique. Technique: Standard imaging without intravenous contrast. No prior study for comparison. No evidence of acute intracranial hemorrhage, mass effect, midline shift or abnormal extra-axial fluid collection. Low-density in the white matter bilaterally, a nonspecific finding, but which is commonly due to chronic small vessel ischemic disease in a patient of this age. Small low-attenuation foci in the periventricular white matter, likely small lacunar infarcts. Partially visualized sinuses are clear. No acute skull abnormality. Partially visualized orbits appear unremarkable. No notable scalp swelling. IMPRESSION: 1. White matter changes suggesting chronic small vessel ischemic disease. 2. No evidence of acute intracranial hemorrhage or mass effect.[] Course & Med Decision Making Course & Med Decision Making Pertinent Labs and Imaging studies reviewed. (See chart for details) ED course: Patient arrived, was placed in bed, and tolerated exam well. He was transported to and from radiology with any complications. After the return of the laboratory and imaging findings, these were discussed with the patient who voiced understanding. Dictation was made with the hospitalist service for admission. Due to probable need for an MRI, it was elected [facility] He was transferred in improved condition. Medical decision making: Concerned the patient is having TIAs. He is on blood thinners. Some of these symptoms may also be due to recent changes in his medications. There is no evidence of an acute stroke syndrome requiring thrombolytic therapy at this time. No evidence of significant electrolyte abnormality. No evidence of a urinary tract infection.[] Dragon Disclaimer Dragon Disclaimer This electronic medical record was generated, in whole or in part, using a voice recognition dictation system. Departure Departure: Impression: Primary Impression: TIA (transient ischemic attack) Additional Impressions: Episodic weakness Atrial fibrillation Disposition: 05 TRANSFER OTHER Admitting Physician: Lupe Mclaughlin Condition: IMPROVED Referrals: EFREN SAUL MD (PCP) Problem Qualifiers Additional Impressions: Atrial fibrillation Atrial fibrillation type: paroxysmal Qualified Codes: I48.0 - Paroxysmal atrial fibrillation MARIANGEL MEDEIROS Dec 20, 2018 12:01
--- NOTE | 2018-12-20 12:19 | RAD ---
CT HEAD WO CONTRAST Indication: Speech difficulties for 2 days. Exposure: One or more of the following individualized dose reduction techniques were utilized for this examination: 1. Automated exposure control 2. Adjustment of the mA and/or kV according to patient size 3. Use of iterative reconstruction technique. Technique: Standard imaging without intravenous contrast. No prior study for comparison. No evidence of acute intracranial hemorrhage, mass effect, midline shift or abnormal extra-axial fluid collection. Low-density in the white matter bilaterally, a nonspecific finding, but which is commonly due to chronic small vessel ischemic disease in a patient of this age. Small low-attenuation foci in the periventricular white matter, likely small lacunar infarcts. Partially visualized sinuses are clear. No acute skull abnormality. Partially visualized orbits appear unremarkable. No notable scalp swelling. IMPRESSION: 1. White matter changes suggesting chronic small vessel ischemic disease. 2. No evidence of acute intracranial hemorrhage or mass effect. Electronically signed by: Rory Michelle MD (12/20/2018 12:16 PM) [facility]
[2018-12-20 12:20] LABS: BASO % 1 % (0-3); EOS % 0 % (0-3); HEMATOCRIT 31.9 % (39.0-53.0); LYMPH # 1.9 x10^3/uL (1.0-4.8); LYMPH % 31 % (24-48); MEAN CORPUSCULAR HEMOGLOBIN 32 pg (25-35); MEAN CORPUSCULAR HGB CONC 35 g/dL (31-37); MEAN CORPUSCULAR VOLUME 92 fL (79-100); MONO # 0.9 x10^3/uL (0.0-1.1); MONO % 15 % (0-9); NEUT # 3.3 x10^3uL (1.8-7.7); NEUT % 53 % (31-73); PLATELET COUNT 183 x10^3/uL (140-400); RED BLOOD COUNT 3.45 x10^6/uL (4.30-5.70); RED CELL DISTRIBUTION WIDTH 14.2 % (11.5-14.5); WHITE BLOOD COUNT 6.1 x10^3/uL (4.0-11.0)
--- NOTE | 2018-12-20 12:25 | RAD ---
CHEST AP ONLY History: Speech difficulty Comparison: 04/30/2018 Findings: Single view of the chest is submitted. Mild left base opacity may be due to mild atelectasis. There is no significant pleural fluid or pneumothorax. The pericardial cardiac silhouette is within normal limits in size. There is atherosclerotic calcification near aortic arch. Impression: 1. There is probable mild left base atelectasis. Electronically signed by: Pj Steve MD (12/20/2018 12:22 PM) [place] [id number]
[2018-12-20 12:40] LABS: ALBUMIN 3.9 g/dL (3.4-5.0); ALBUMIN/GLOBULIN RATIO 1.3 (1.0-1.7); CALCIUM 8.8 mg/dL (8.5-10.1); CREATININE 1.1 mg/dL (0.7-1.3); GFR 63.2; POTASSIUM 4.2 mmol/L (3.5-5.1); TOTAL BILIRUBIN 0.6 mg/dL (0.2-1.0)
[2018-12-20 13:34] LABS: BACTERIA,URINE 0 /HPF (0-FEW); BILIRUBIN,URINE NEG (NEG); CLARITY,URINE CLEAR; COLOR,URINE YELLOW; GLUCOSE,URINE NEG (NEG); NITRITE,URINE NEG (NEG); RBC,URINE 0 /HPF (0-2); SQUAMOUS EPITHELIAL CELL,UR OCC /LPF; UROBILINOGEN,URINE 0.2 mg/dL (0.2 mg/dL); WBC,URINE RARE /HPF (0-4)
[2018-12-20 16:21] VITALS: BP 153/63
--- NOTE | 2018-12-21 07:46 | EKG ---
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
== END 2018-12-20 16:30 | disposition short-term general hospital (02) ==
LOC: ER 11:13
DX: G45.9 Transient cerebral ischemic attack, unspecified (principal); I48.0 Paroxysmal atrial fibrillation; Z88.8 Allergy status to other drugs, medicaments and biological substances
CPT/HCPCS: 36415; 70450; 71045; 80053; 81001; 83605; 83880; 84484; 85025; 85610; 85730; 93005; 99285

== ENCOUNTER 2019-05-12 07:06 | Inpatient (IN) | payer BC, MEDICARE ==
[~2019-05-12] VITALS: Ht 180.3 cm; Wt 75.3 kg
[2019-05-12] VITALS (7 sets, daily range): BP systolic 122–189; BP diastolic 50–92
--- NOTE | 2019-05-12 07:17 | EKG ---
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
--- NOTE | 2019-05-12 07:24 | PHYS DOC ---
Past History Past Medical History: A-Fib Past Surgical History: Cholecystectomy Smoking: Non-smoker Alcohol Use: None Drug Use: None Adult General HPI HPI Patient is a 88-year-old male presents following a near syncopal episode. Patient was up, getting some coffee in the kitchen, and felt like he was going to pass out. As he was lowering himself to the floor he hit his head against the countertop. Uncertain as to whether there was a loss of consciousness. If there was one it was very short, his was there within seconds and he was awake. He was unable to get himself up from the floor due to weakness. Denies any chest pain or palpitations. Patient is on Plavix as part of his medicine regimen due to a history of atrial fibrillation. Patient reports that his last tetanus vaccine was within the past 5 years. He just receive the flu vaccine yesterday. He denies any pain. Denies any nausea or vomiting. He sustained a left-sided facial/head injury, bleeding was controlled without any intervention.[] Review of Systems Review of Systems Constitutional: Denies fever or chills [] Eyes: Denies change in visual acuity, redness, or eye pain [] HENT: Denies nasal congestion or sore throat [] Respiratory: Denies cough or shortness of breath [] Cardiovascular: No chest pain or palpitations[] GI: Denies abdominal pain, nausea, vomiting, bloody stools or diarrhea [] : Denies dysuria or hematuria [] Musculoskeletal: Denies back pain or joint pain [] Integument: Denies rash or skin lesions [] Neurologic: Denies headache, focal weakness or sensory changes [] Endocrine: Denies polyuria or polydipsia [] All other systems were reviewed and found to be within normal limits, except as documented in this note. Allergies Allergies Allergies Coded Allergies Type Severity Reaction Last Updated Verified Chkdxpv-Ekv-Bnv Reductase Inhibitor Allergy Intermediate 05/01/18 Yes nitroglycerin Allergy Intermediate 05/01/18 Yes Physical Exam Physical Exam Constitutional: Well developed, well nourished, no acute distress, non-toxic appearance. [] HENT: Normocephalic, left sided laceration lateral to the eye running obliquely, approximately 1 inch in length. Bleeding is controlled. No foreign body identified. TMs are clear without any blood or fluid, bilateral external ears normal, no Trinh's sign. Oropharynx moist, no oral exudates, nose normal. [] Eyes: PERRLA, EOMI, conjunctiva normal, no discharge. [] Neck: Normal range of motion, no tenderness, supple, no stridor. [] Cardiovascular:Heart rate regular rhythm, no murmur [] Lungs & Thorax: Bilateral breath sounds clear to auscultation [] Abdomen: Bowel sounds normal, soft, no tenderness, no masses, no pulsatile masses. [] Skin: Warm, dry, no erythema, no rash. [] Back: No tenderness, no CVA tenderness. [] Extremities: No tenderness, no cyanosis, no clubbing, ROM intact, no edema. [] Neurologic: Alert and oriented X 3, normal motor function, normal sensory function, no focal deficits noted. [] Psychologic: Affect normal, judgement normal, mood normal. [] EKG EKG EKG shows a sinus rhythm at 94 bpm, normal axis, QTC of 438 ms, no ST elevations. Compared with EKG of 12/20/2018, no acute changes are present. This was interpreted by me at 0713[] Radiology/Procedures Radiology/Procedures PROCEDURE: PORTABLE CHEST 1V AP chest x-ray HISTORY: Syncopal less so. COMPARISON: Chest x-ray December 20, 2018. FINDINGS: Heart size normal. Mediastinal silhouette is normal. At the lateral left lung base there is a focal density along the left lateral diaphragm this is similar to prior x-rays and corresponds to an asymmetric prominent epicardial fat pad extending along the lateral diaphragm present on prior CT imaging in 2012. No new or suspicious pulmonary opacity. No pneumothorax or pleural effusions. Bones are unremarkable. IMPRESSION: No acute process. Stable exam as described above. PROCEDURE: CT HEAD AND CERVICAL SPINE WO CT head without contrast. CT cervical spine without contrast. PQRS statement: CT scans at this facility use dose reduction including either automated exposure control, iterative reconstructions, and /or weight based radiation dosing via mA and kV modification when appropriate to reduce radiation dose to as low as reasonably achievable. HISTORY: Syncope episode with head injury. Headache. Neck pain. Fall. COMPARISON: CT head December 20, 2018. CT head findings: Chronic right basal ganglia subcentimeter ischemic hypodense infarct stable. Generalized brain atrophy. Focal hypodensities left frontal hernandez radiata white matter and left basal ganglia likely represent small chronic ischemic infarcts, stable. No new infarct or acute ischemic change since prior exam. No intracranial hemorrhage, mass or hydrocephalus. Mild cerebral periventricular white matter hypodensity is stable likely changes of chronic small vessel ischemic disease. Orbits, mastoids and bones are unremarkable. IMPRESSION: No acute intracranial CT abnormality. Stable exam as described above. Craniocervical junction intact. 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 Cervical vertebral body height and alignment intact. No fracture of the cervical spine. Multilevel cervical disc height loss, disc osteophytes and uncovertebral facet spurs with spinal canal and neural canal stenoses may be severe at several levels. Lung apices and paraspinal tissues are unremarkable. IMPRESSION: No acute osseous injury of the cervical spine. Cervical disc disease and arthritic change as described above. [] Course & Med Decision Making Course & Med Decision Making Pertinent Labs and Imaging studies reviewed. (See chart for details) ED course: Patient arrived, was placed in bed, and tolerated exam well. His wound was repaired as noted. He was transported to and from [place] with any complications. After return the laboratory and imaging findings, these were discussed with the patient and family as well as the hospitalist who graciously admitted the patient. Patient was admitted in improved condition. Medical decision m[age]-year-old male on blood thinners, Plavix, with a syncopal episode and head injury. Patient is being admitted for further evaluation and treatment.[] Dragon Disclaimer Dragon Disclaimer This electronic medical record was generated, in whole or in part, using a voice recognition dictation system. Departure Departure: Impression: Primary Impression: Syncope Additional Impressions: Closed head injury Facial laceration Disposition: ADMITTED INPATIENT Admitting Physician: Lupe Mclaughlin Condition: IMPROVED Referrals: EFREN SAUL MD (PCP) Laceration Repair Lac Repair Indication: Left facial laceration[] Procedure: The patient was placed in the appropriate position and the area was then cleansed. The laceration was closed utilizing skin glue. The wound area was then dressed with sterile dressing. Total repaired wound length: 2.5 cm Other Items: None The patient tolerated the procedure well. Complications: None. Problem Qualifiers Primary Impression: Syncope Syncope type: unspecified Qualified Codes: R55 - Syncope and collapse Additional Impressions: Closed head injury Encounter type: initial encounter Qualified Codes: S09.90XA - Unspecified injury of head, initial encounter Facial laceration Encounter type: initial encounter Qualified Codes: S01.81XA - Laceration without foreign body of other part of head, initial encounter MARIANGEL MEDEIROS DO May 12, 2019 07:24
[2019-05-12 07:50] LABS: BASO % 0 % (0-3); EOS % 1 % (0-3); HEMATOCRIT 35.3 % (39.0-53.0); HEMOGLOBIN 11.7 g/dL (13.0-17.5); LYMPH # 1.2 x10^3/uL (1.0-4.8); LYMPH % 27 % (24-48); MEAN CORPUSCULAR HEMOGLOBIN 31 pg (25-35); MEAN CORPUSCULAR HGB CONC 33 g/dL (31-37); MEAN CORPUSCULAR VOLUME 95 fL (79-100); MONO # 0.8 x10^3/uL (0.0-1.1); MONO % 18 % (0-9); NEUT # 2.4 x10^3uL (1.8-7.7); NEUT % 55 % (31-73); PLATELET COUNT 146 x10^3/uL (140-400); RED BLOOD COUNT 3.73 x10^6/uL (4.30-5.70); WHITE BLOOD COUNT 4.4 x10^3/uL (4.0-11.0)
[2019-05-12 07:52] LABS: ALBUMIN 4.3 g/dL (3.4-5.0); ALBUMIN/GLOBULIN RATIO 1.4 (1.0-1.7); CALCIUM 8.9 mg/dL (8.5-10.1); CREATININE 1.2 mg/dL (0.7-1.3); GFR 57.1; MAGNESIUM 1.8 mg/dL (1.8-2.4); POTASSIUM 4.7 mmol/L (3.5-5.1); TOTAL BILIRUBIN 1.1 mg/dL (0.2-1.0); TOTAL PROTEIN 7.3 g/dL (6.4-8.2)
[2019-05-12] MEDS ORDERED: PROP225C2 PO (08:00)
[2019-05-12] MEDS ORDERED: METO-239 PO (08:00)
[2019-05-12] MEDS ORDERED: CLOP75TA57 PO (08:00)
--- NOTE | 2019-05-12 08:23 | RAD ---
CT head without contrast. CT cervical spine without contrast. PQRS statement: CT scans at this facility use dose reduction including either automated exposure control, iterative reconstructions, and /or weight based radiation dosing via mA and kV modification when appropriate to reduce radiation dose to as low as reasonably achievable. HISTORY: Syncope episode with head injury. Headache. Neck pain. Fall. COMPARISON: CT head December 20, 2018. CT head findings: Chronic right basal ganglia subcentimeter ischemic hypodense infarct stable. Generalized brain atrophy. Focal hypodensities left frontal hernandez radiata white matter and left basal ganglia likely represent small chronic ischemic infarcts, stable. No new infarct or acute ischemic change since prior exam. No intracranial hemorrhage, mass or hydrocephalus. Mild cerebral periventricular white matter hypodensity is stable likely changes of chronic small vessel ischemic disease. Orbits, mastoids and bones are unremarkable. IMPRESSION: No acute intracranial CT abnormality. Stable exam as described above. Craniocervical junction intact. 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 Cervical vertebral body height and alignment intact. No fracture of the cervical spine. Multilevel cervical disc height loss, disc osteophytes and uncovertebral facet spurs with spinal canal and neural canal stenoses may be severe at several levels. Lung apices and paraspinal tissues are unremarkable. IMPRESSION: No acute osseous injury of the cervical spine. Cervical disc disease and arthritic change as described above. Electronically signed by: Aleksandr Campos MD (05/12/2019 8:20 AM) [facility]
--- NOTE | 2019-05-12 08:25 | RAD ---
AP chest x-ray HISTORY: Syncopal less so. COMPARISON: Chest x-ray December 20, 2018. FINDINGS: Heart size normal. Mediastinal silhouette is normal. At the lateral left lung base there is a focal density along the left lateral diaphragm this is similar to prior x-rays and corresponds to an asymmetric prominent epicardial fat pad extending along the lateral diaphragm present on prior CT imaging in 2012. No new or suspicious pulmonary opacity. No pneumothorax or pleural effusions. Bones are unremarkable. IMPRESSION: No acute process. Stable exam as described above. Electronically signed by: Aleksandr Campos MD (05/12/2019 8:22 AM) [facility]
[2019-05-12] MEDS: IV NORMAL SALINE 1,000ML 1,000 ML IV SCH ×2 (08:35→23:26)
[2019-05-12] MEDS ORDERED: ONDANSETRON PF 4 MG/2 ML VIAL. IV PRN (08:45)
[2019-05-12] MEDS ORDERED: ACETAMINOPHEN 325 MG TABLET PO PRN (08:45)
[2019-05-12 09:24] LABS: BACTERIA,URINE 0 /HPF (0-FEW); BILIRUBIN,URINE NEG (NEG); CLARITY,URINE CLEAR; COLOR,URINE YELLOW; GLUCOSE,URINE NEG (NEG); NITRITE,URINE NEG (NEG); RBC,URINE 0 /HPF (0-2); SQUAMOUS EPITHELIAL CELL,UR OCC /LPF; UROBILINOGEN,URINE 0.2 mg/dL (0.2 mg/dL); WBC,URINE 0 /HPF (0-4)
--- NOTE | 2019-05-12 12:42 | PDOC ---
PROVIDER NOTE PROVIDER NOTE PROVIDER NOTE Cardiology consultation note Reason for consultation syncope History of present illness 88-year-old male with past medical history as noted below coming into the hospit al in the setting of syncope. He was getting ready to eat breakfast and walked up to the kitchen counter and then had a brief episode of lightheadedness and subsequently fell to the ground was only unconscious for a few seconds according to history. Patient does not feel like this was a significant event. He denies any associated chest pain, dyspnea, orthopnea or PND. No recent palpitations. Of note the patient underwent a left carotid endarterectomy in December 2018. He was also seen in the office in February and did not have any acute cardiac issues Past medical history 1. Paroxysmal atrial fibrillation on metoprolol and papaverine on therapy 2. Prior history of CVA/TIA status post left carotid endarterectomy 3. GI bleed 4. Hypertension 5. History of colon cancer Family history is noncontributory Social history he is a former smoker but currently denies any alcohol, tobacco or illicit drug use Allergies to statins and nitroglycerin reaction is unclear Review systems is negative unless otherwise mentioned above in history of present illness. The patient appeared well nourished and normally developed. Head exam is unremarkable. No scleral icterus or corneal arcus noted. Neck is without jugular venous distension, thyromegaly, or carotid bruits. Carotid upstr okes are brisk bilaterally. Lungs are clear to auscultation and percussion. Cardiac exam reveals the PMI to be normally sized and situated. Rhythm is regular. First and second heart sounds normal. No murmurs, rubs or gallops. Abdominal exam reveals normal bowel sounds, no masses, no organomegaly and no aortic enlargement. Extremities are nonedematous and both femoral and pedal pulses are normal. Msk: No traumua Neuro: No focal deficits Diagnostic studies including a stress test in June 2018 and an echocardiogram in December 2018 are grossly unremarkable. He does not have any prior evidence of bradycardia on event monitoring. Impression: 1. Syncope: Etiologies unclear differential diagnosis includes orthostatic hypotension/syncope versus tachycardia-bradycardia syndrome. No obvious ischemia noted on EKG. 2. Uncontrolled HTN. Recommendations: 1. He is currently in sinus rhythm and with respect to his prior stroke and GI bleeding issues he was ultimately discharged on Plavix therapy at that time and we will continue this. 2. With respect to syncope we will plan for an outpatient event monitor and/or implantable loop recorder for further evaluation. No current indication for pacemaker. 3. Check orthostatics. 4. Start hydralazine IV prn for BP and determine if he needs any buttermaker continuous churn BP meds over the next 24 hours. Thanks. PEÑA MEDRANO MD May 12, 2019 12:42
[2019-05-12] MEDS ORDERED: hydrALAZINE 20 MG/ML VIAL. IV PRN (12:45)
[2019-05-12] MEDS ORDERED: PROPAFENONE HCL 150 MG PO PRN (13:30)
[2019-05-12] MEDS: PROPAFENONE 150 MG TABLET. PO SCH ×2 (16:15→20:22)
--- NOTE | 2019-05-12 16:51 | HP ---
ADMIT DATE: 05/12/2019 HISTORY OF PRESENT ILLNESS: The patient is an 88-year-old male patient who came to the Emergency Room with syncope. The patient was up getting some coffee in the kitchen and felt like he was going to pass out and as he was lowering himself to the floor, he hit his head against the countertop, uncertain as to whether there was some loss of consciousness. His was there within seconds and he was awake. He was unable to get himself up from the floor due to weakness. He denied any chest pain or palpitation. The patient is on Plavix as part of his medicine regimen due to history of atrial fibrillation. He just received his flu vaccine yesterday; however, he denied any chest pain, denied any shortness of breath, nausea, vomiting. He did sustain left-sided facial head injury, bleeding was controlled without any intervention and was admitted for further evaluation and treatment. While in the Emergency Room, he had an EKG, which showed he was in sinus rhythm at 94 beats per minute, normal axis and a QT interval of 438 milliseconds, no ST segment elevation. His chest x-ray showed the heart size and mediastinal silhouette are normal. CT scan of the head without contrast as well as CT scan of the cervical spine showed no intracranial CT abnormality, stable exam as described. Has no acute osseous injury of the cervical spine, cervical disk disease, and arthritic changes as described above. He has had lab work, which showed that he has mild anemia. His blood sugar was slightly elevated at 162. First set of cardiac enzymes showed troponin to be less than 0.017. His prothrombin time, INR and aPTT were normal and urinalysis was essentially unremarkable. He was admitted to do 2 more sets of cardiac enzyme to consult the Cardiology team. PAST MEDICAL HISTORY: Significant for previous history of paroxysmal atrial fibrillation, hypertension, hyperlipidemia. Has a history of colon cancer with resection. Positive generalized osteoarthritis and prostate cancer, type 2 diabetes. PAST SURGICAL HISTORY: Significant for partial colon resection, prostatectomy, as well as cholecystectomy and bilateral cataract extractions. FAMILY HISTORY: Positive for cancer. SOCIAL HISTORY: He is , lives with his . He quit smoking 25 years ago. He does not drink alcohol or use recreational drugs. ALLERGIES: He is allergic to STATINS AND NITROGLYCERIN. MEDICATIONS: He is currently on Plavix 75 mg once a day, flecainide acetate 50 mg q.12 hourly, propafenone or Rythmol 150 mg, metoprolol succinate 12.5 mg daily, metoprolol succinate 25 mg daily, aspirin 81 mg once a day, Flonase 1 spray to each nostril once a day. REVIEW OF SYSTEMS: As per history of present illness. PHYSICAL EXAMINATION GENERAL: On arrival to the Emergency Room, he looked not pale. No jaundice, cyanosis or thyromegaly. No jugular venous distention. No limb edema. VITAL SIGNS: His heart rate on arrival was 95, blood pressure 209/106, temperature was 98.2, respiratory rate was 22 and oxygen saturation was 97%. HEAD, EYES, EARS, NOSE AND THROAT: Showed normocephalic, atraumatic. NECK: Supple. HEART: Showed normal first and second heart sounds. No gallop, rub or murmur. CHEST: Clear to auscultation. No crepitation or rhonchi. ABDOMEN: Distended, soft, nontender. NEUROLOGIC: He was awake, alert, responding appropriately. All cranial nerves intact. EXTREMITIES: He moves his extremities without difficulty. SKIN: Examination of the skin showed that he has mild superficial laceration on the left forehead, glued at the Emergency Room. LABORAORY DATA: His lab work on arrival showed a white cell count 4400, hemoglobin 11.6, hematocrit 35.3, MCV 95, and platelet count of 146,000. His chemistry showed a serum sodium 142, potassium 4.7, chloride 103, bicarbonate 29, anion gap of 10, BUN 26, creatinine 1.2, estimated GFR was 57 mL per minute, his glucose 162, calcium was 8.9, magnesium was 1.8. Total bilirubin, AST, ALT, alkaline phosphatase were normal. Total protein was 7.3, albumin 4.3. Beta natriuretic peptide was 185. Her first set of troponin was less than 0.017. His prothrombin time, INR and aPTT were normal. Urinalysis was essentially unremarkable. Apparently, he has had a chest x-ray, which showed the heart size is normal. Mediastinum silhouette is normal. At the lateral left lung base, there is a focal density along the left lateral diaphragm that is similar to prior x-rays and corresponds to and symmetric prominent epicardial fat pad extending along the lateral diaphragm present on prior CT imaging 2012. No new or suspicious pulmonary opacity. No pneumothorax or pleural effusion. Bones are unremarkable. CT scan of the head without contrast showed that he has chronic right basal ganglia, subcentimeter ischemic hypodense infarct stable, generalized brain atrophy, focal hypodensities, left frontal hernandez radiata, white matter and left basal ganglia likely represents small chronic ischemic infarct, stable. No new infarct or acute ischemic changes since prior exam. No intracranial hemorrhage, mass, or hydrocephalus, mild cerebral periventricular white matter hypodensity is stable, likely changes of chronic small vessel ischemic disease. The orbits, mastoids and bones are unremarkable. The CT scan of the cervical spine showed craniocervical junction is intact. 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 Cervical vertebral body heights and alignment are intact. No fracture of the cervical spine, multilevel cervical disk height loss, disk osteophytes and uncovertebral facet spurs with spinal canal and neural canal stenosis may be severe at several levels. The lung apices and paraspinal tissues are unremarkable. PLAN: The patient was admitted to be monitored and do 2 more sets of cardiac enzyme and to consult the Cardiology team for further evaluation and treatment. JOSIAS MCGUIRE MD DR: MATTHIAS/yue JOB#: [id number] / [id number]
[2019-05-12] MEDS: FLECAINIDE 50 MG TABLET. PO SCH (20:22)
[2019-05-13 00:09] VITALS: BP 132/72
[2019-05-13 06:14] VITALS: BP 133/77
[2019-05-13 06:47] LABS: BASO % 0 % (0-3); EOS % 0 % (0-3); HEMATOCRIT 31.5 % (39.0-53.0); HEMOGLOBIN 10.4 g/dL (13.0-17.5); LYMPH # 1.1 x10^3/uL (1.0-4.8); LYMPH % 29 % (24-48); MEAN CORPUSCULAR HEMOGLOBIN 32 pg (25-35); MEAN CORPUSCULAR HGB CONC 33 g/dL (31-37); MEAN CORPUSCULAR VOLUME 95 fL (79-100); MONO # 0.6 x10^3/uL (0.0-1.1); MONO % 16 % (0-9); NEUT # 2.1 x10^3uL (1.8-7.7); NEUT % 54 % (31-73); PLATELET COUNT 144 x10^3/uL (140-400); RED CELL DISTRIBUTION WIDTH 14.4 % (11.5-14.5); WHITE BLOOD COUNT 3.9 x10^3/uL (4.0-11.0)
[2019-05-13 06:57] LABS: ALBUMIN 3.5 g/dL (3.4-5.0); ALBUMIN/GLOBULIN RATIO 1.2 (1.0-1.7); CALCIUM 7.7 mg/dL (8.5-10.1); CREATININE 0.9 mg/dL (0.7-1.3); GFR 79.6; POTASSIUM 3.8 mmol/L (3.5-5.1); TOTAL PROTEIN 6.4 g/dL (6.4-8.2)
[2019-05-13] MEDS: ASPIRIN 81 MG TAB.CHEW PO SCH ×2 (08:24→08:26)
[2019-05-13] MEDS: PROPAFENONE 150 MG TABLET. PO SCH (08:24)
[2019-05-13] MEDS: FLECAINIDE 50 MG TABLET. PO SCH (08:26)
[2019-05-13] MEDS ORDERED: CLOPIDOGREL BISULFATE 75 MG TABLET PO SCH (09:00)
[2019-05-13] MEDS ORDERED: METOPROLOL SUCC 24HR ER 25 MG TAB.ER.24H. PO SCH (09:00)
[2019-05-13 11:12] VITALS: BP 141/63
[2019-05-13] MEDS ORDERED: PROP225C2 PO (12:46)
--- NOTE | 2019-05-13 13:50 | DS ---
DATE OF DISCHARGE: 05/13/2019 HOSPITAL COURSE: The patient is an 88-year-old male patient who was admitted with syncope. He was getting ready to eat his breakfast and walked up to the kitchen counter and had a brief episode of lightheadedness, subsequently fell to the ground, was only unconscious for a few seconds according history. He does not feel like it was a significant event. He denies any associated chest pain, dyspnea, orthopnea or paroxysmal nocturnal dyspnea. Does not proceed with any palpitation or chest pain. He has had 2 sets of cardiac enzymes that ruled out myocardial infarction. He was monitored throughout his stay here and he was constantly in sinus rhythm. There were no episodes of jacques or tachyarrhythmias. No high grade heart block. We contacted his pharmacy and apparently he was only taking half a tablet of metoprolol succinate as well as Rythmol 150 mg and according to him, he was not taking it 3 times a day, although he sometimes takes only 2. He has not fill his Tambocor for a few months now according to the pharmacy. OBJECTIVE: GENERAL: When I saw him this afternoon, he was resting slightly propped up in bed, in no apparent respiratory distress. No pallor. Slightly pale, but no jaundice, cyanosis or thyromegaly. No jugular venous distention. No lower limb edema. VITAL SIGNS: His heart rate was 78, blood pressure was 141/63, temperature was 97.6, respiratory rate was 10 and oxygen saturation was 95%. HEAD, EYES, EARS, NOSE AND THROAT: Showed normocephalic, atraumatic. NECK: Supple. HEART: Showed normal first and second heart sounds. No gallop or murmur. CHEST: Clear to auscultation. No crepitation or rhonchi. ABDOMEN: Distended, soft, nontender. NEUROLOGIC: He was awake, alert, responding appropriately. All cranial nerves are intact. He moves extremities without difficulty. He walks without assistance or assistive devices. LABORATORY DATA: His lab work as of this morning showed a white cell count of 3900, hemoglobin 10.4, hematocrit 31.5, MCV 95, and platelet count of 144,000. His chemistry showed serum sodium 142, potassium 3.8, chloride 108, bicarbonate 27, anion gap of 7, BUN 17, creatinine 0.9, estimated GFR was 79 mL per minute, his glucose 133, calcium was 7.7. His total bilirubin, AST, ALT, alkaline phosphatase were normal. Total protein was 6.4, albumin was 3.5. His prothrombin time, INR and APTT are normal. DISCHARGE MEDICATIONS: The patient was discharged home to continue on aspirin 81 mg once a day, Plavix 75 mg once a day, flecainide 50 mg twice a day, Flonase 1 spray to each nostril twice a day, metoprolol succinate 12.5 mg once a day, and Rythmol 150 mg 3 times a day. FINAL DISCHARGE DIAGNOSES: 1. Syncope. The patient did not show any evidence of any tachy or bradyarrhythmia. He continued to be in sinus rhythm; however, he is known to have a history of paroxysmal atrial fibrillation. 2. Hypertension. 3. History of gastrointestinal bleed. 4. Cerebrovascular accident and transient ischemic attack status post left carotid endarterectomy. 5. History of colon cancer, status post subtotal resection of the colon. JOSIAS MCGUIRE MD DR: MATTHIAS/yue JOB#: [id number] / [id number]
== END 2019-05-13 13:15 | disposition home or self-care (01) | DRG 74 ==
LOC: ER 07:06 → ICU 09:22
PROVIDERS: ADMIT Internal Medicine; ATTEND Internal Medicine
PROC: 0HQ1XZZ Repair Face Skin, External Approach (ICD-10-PCS; principal; 2019-05-12)
DX: G90.8 Other disorders of autonomic nervous system (principal); S01.81XA Laceration without foreign body of other part of head, initial encounter; E11.9 Type 2 diabetes mellitus without complications; E78.5 Hyperlipidemia, unspecified; I10 Essential (primary) hypertension; I48.0 Paroxysmal atrial fibrillation; M15.9 Polyosteoarthritis, unspecified; X58.XXXA Exposure to other specified factors, initial encounter; Z79.02 Long term (current) use of antithrombotics/antiplatelets; Z85.038 Personal history of other malignant neoplasm of large intestine; Z85.46 Personal history of malignant neoplasm of prostate; W18.39XA Other fall on same level, initial encounter; Z86.73 Personal history of transient ischemic attack (TIA), and cerebral infarction without residual deficits; Z98.41 Cataract extraction status, right eye; Z98.42 Cataract extraction status, left eye; Z87.891 Personal history of nicotine dependence; Y93.89 Activity, other specified; Y92.89 Other specified places as the place of occurrence of the external cause; Y99.8 Other external cause status; Z88.8 Allergy status to other drugs, medicaments and biological substances
CPT/HCPCS: 12011; 36415; 70450; 71045; 72125; 80053; 81001; 83735; 83880; 84484; 85025; 85610; 85730; 93005; 99285-25; J7030